=== PATIENT | female | born 1950 | race Caucasian/White ===

== ENCOUNTER 2017-03-21 11:06 | Outpatient (CLI) | payer MEDICARE, BC ==
[~2017-03-21] VITALS: Ht 157.5 cm; Wt 68.0 kg
[2017-03-21 11:30] VITALS: BP 135/71
[2017-03-21] MEDS ORDERED: ASPIR 8181 MG ORAL (14:10)
[2017-03-21] MEDS ORDERED: METFORMIN HCL1000 M3 PO (14:10)
[2017-03-21] MEDS ORDERED: PRAVACHOL40 MG ORAL (14:10)
--- NOTE | 2017-03-21 14:15 | GI Initial Consult Note ---
Ventura,Junie Rogers N.[place]incoln 03/21/17 1415: History of Present Illness General Date patient seen: Mar 21, 2017 Time patient seen: 14:07 Referring physician: ANGELA Reason for Consultation: ROUTINE COLONOSCOPY Present Illness HPI 66 year old female patient referred by Dr. Palma presents today for routine GI evaluation. The patient last had a colonoscopy performed in 2011 where she states the results were unsure due to poor prep. She presents today with c/o of abdominal bloating. Denies any unintentional weight loss or changes in dietary habits. No signs of abuse or neglect. Patient is not fall risk. The patient is unaware of any drug/food allergies she may have. Home Meds Reported Medications Aspirin* (ASPIR 81*) 81 Mg Tablet.dr, 81 MG ORAL DAILY, TAB 03/21/17 Pravastatin Sodium (PRAVACHOL) 40 Mg Tablet, 10 MG ORAL BEDTIME, TAB 03/21/17 Metformin HCl (Metformin HCl ER) 1,000 Mg [id number], 1000 MG PO, TAB 03/21/17 Med list reviewed/reconciled: Yes Allergies: Coded Allergies: No Known Allergies (Unverified , 03/21/17) Patient History History Provided By: Patient, Medical Record PMH Narrative GERD DM Ovarian cysts Past Surgical History: Cosmetic Family History Narrative grandmother >> breast CA Uncle >> Throat CA Social History: Reports: smoking - quit 4 years ago Review of Systems All Other Systems: negative except mentioned in HPI Physical Exam T 98.5 BP 135/71 P 84 96 RA WT 150 lbs Sp02 EP Interpretation: reviewed, normal General Appearance: well appearing, no apparent distress, alert Head: normocephalic EENT: PERRL/EOMI, normal ENT inspection Neck: supple Respiratory: normal breath sounds, no respiratory distress Cardiovascular: normal rate Gastrointestinal: normal inspection, non tender, soft, normal bowel sounds, non -distended Rectal: deferred Genitourinary: no CVA tenderness Musculoskeletal: normal inspection, back normal Neurologic: normal inspection, alert, oriented x3, responsive Psychiatric: normal inspection, judgement/insight normal, memory normal Skin: normal inspection, normal color, no rash, warm/dry, palpation normal, well hydrated Lymphatic: normal inspection, no adenopathy GI: Plan Problems: (1) Colonoscopy planned (2) GERD (gastroesophageal reflux disease) (3) Diabetes mellitus Plan EGD/colonoscopy pending, patient will contact us for scheduling. - CLD & (Nulytely/Suprep/Movi-Prep) prep instructions given and acknowledged by patient. - NPO @ [place] day prior procedure explained. Seen with Dr. Mike. Thank you for this patient referral. MARCOS MIKE 03/22/17 1243: History of Present Illness Present Illness Home Meds Reported Medications Aspirin* (ASPIR 81*) 81 Mg Tablet.dr, 81 MG ORAL DAILY, TAB 03/21/17 Pravastatin Sodium (PRAVACHOL) 40 Mg Tablet, 10 MG ORAL BEDTIME, TAB 03/21/17 Metformin HCl (Metformin HCl ER) 1,000 Mg [id number], 1000 MG PO, TAB 03/21/17 Allergies: Coded Allergies: No Known Allergies (Unverified , 03/21/17) GI: Plan Plan The patient was seen and examined at bedside and all new and available data was reviewed in the patients chart. I agree with the above findings, impression and plan. (Patient seen earlier today. Signature stamp does not reflect patient encounter time.). - MD Audrey [facility] Rogers N.Shannon Mar 21, 2017 14:15 MARCOS MIKE Mar 22, 2017 12:43
== END 2017-03-21 11:33 | disposition home or self-care (01) ==
LOC: PAN 11:06
DX: K21.9 Gastro-esophageal reflux disease without esophagitis (principal); E11.9 Type 2 diabetes mellitus without complications; Z79.82 Long term (current) use of aspirin; Z79.84 Long term (current) use of oral hypoglycemic drugs; Z80.3 Family history of malignant neoplasm of breast; Z80.8 Family history of malignant neoplasm of other organs or systems; Z87.891 Personal history of nicotine dependence
CPT/HCPCS: 99201

== ENCOUNTER 2017-04-03 07:16 | Day surgery (SDC) | payer MEDICARE, BC ==
[2017-04-03] VITALS (8 sets, daily range): BP systolic 106–134; BP diastolic 58–79
[~2017-04-03] VITALS: Ht 167.6 cm; Wt 68.0 kg
--- NOTE | 2017-04-03 06:00 | Anethesia Preoperative Eval ---
Anesthesia Pre-op PMH/ROS General Date of Evaluation: Apr 03, 2017 Time of Evaluation: 05:58 Anesthesiologist: kiki ASA Score: ASA 3 Mallampati Score Class I : Soft palate, uvula, fauces, pillars visible Class II: Soft palate, uvula, fauces visible Class III: Soft palate, base of uvula visible Class IV: Only hard plate visible Mallampati Classification: Class II Surgeon: jeff Diagnosis: colon screening Surgical Procedure: colonoscopy Anesthesia History: none Social History: smoking - former smoker Family History: no anesthesia problems Allergies: Coded Allergies: No Known Allergies (Unverified , 04/03/17) Medications: see eMAR Past Medical History Cardiovascular: Reports: other - hypercholesterolemia Gastrointestinal/Genitourinary: Reports: GERD Endocrine: Reports: DM Anesthesia Pre-op Phys. Exam Physician Exam Last Vital Signs Date Time Temp Pulse Resp B/P (MAP) Pulse Ox O2 Delivery O2 Flow Rate FiO2 04/03/17 07:52 97.9 76 17 134/79 96 Room Air Constitutional: NAD Neurologic: CN 2-12 intact Cardiovascular: RRR Respiratory: CTA Gastrointestinal: S/NT/ND Airway Exam Mallampati Score: Class II MO: full Neck: supple TMD: 2fb ROM: full Anesthesia Pre-op A/P Studies Pre-op Studies: EKG - nsr Risk Assessment & Plan Assessment: asa3 Plan: mac Status Change Before Surgery: No Pre-Antibiotics Drug: JONAH Patiño Apr 03, 2017 06:00
[~2017-04-03 07:16] MED LIST: ASPIR 8181 MG ORAL; Atropine Inj 1mg/10ml Syr IV PRN; DiphenhydrAMINE 50mg/ml Inj IVP PRN; METFORMIN HCL1000 M3 PO; Midazolam 2mg/2ml Inj IVP PRN; PRAVACHOL40 MG ORAL; fentaNYL 100 mcg/2 mL IV PRN
--- NOTE | 2017-04-03 08:58 | Pre-Procedure Note/Attestation ---
Pre-Procedure Note/Attestation Complete Prior to Procedure Planned Procedure: not applicable Procedure Narrative: EGD AND COLONOSCOPY Indications for Procedure Pre-Operative Diagnosis: GERD, SCREENING COLON Attestation I attest that I discussed the nature of the procedure; its benefits; risks and complications; and alternatives (and the risks and benefits of such alternatives ), prior to the procedure, with the patient (or the patient's legal sales representative printing). I attest that, if there was a reasonable possibility of needing a blood transfusion, the patient (or the patient's legal sales representative printing) was given the [facility] standardized written summary, pursuant to the Josiah María Blood Safety Act ([place] Health and Safety Code # 1645, as amended). I attest that I re-evaluated the patient just prior to the surgery and that there has been no change in the patient's H&P, except as documented below: MARCOS MIKE Apr 03, 2017 08:58
--- NOTE | 2017-04-03 08:59 | Short Stay Surgery H&P ---
History of Present Illness History of Present Illness Chief Complaint SCREENING COLON, GERD SEE RECENT FULL CONSULT HPI Yessy Barraza is a 67 year old female who was admitted on for Colon Screening Patient History Allergies: Coded Allergies: No Known Allergies (Unverified , 04/03/17) PAST MEDICAL HISTORY: Past Surgeries: Social History: Medication History Scheduled Aspirin* (Aspir 81*), 81 MG ORAL DAILY, (Reported) Metformin HCl (Metformin HCl ER), 1,000 MG PO BID, (Reported) Pravastatin Sodium (Pravachol), 10 MG ORAL BEDTIME, (Reported) Physical Exam Vital Signs Last Vital Signs Date Time Temp Pulse Resp B/P (MAP) Pulse Ox O2 Delivery O2 Flow Rate FiO2 04/03/17 07:52 97.9 76 17 134/79 96 Room Air Plan Attestation Are the patient's medical conditions optimized for surgery? MARCOS MIKE Apr 03, 2017 08:59
[2017-04-03] MEDS ORDERED: Propofol 200mg/20ml IV ONE (09:30)
[2017-04-03] MEDS ORDERED: Lidocaine 1% MPF 10mg/ml 5ml ONE (09:30)
--- NOTE | 2017-04-03 10:02 | Endoscopy Procedure Note ---
Endoscopy Procedure Note Indication for Procedure: gerd, screening colon Procedures Performed: EGD, colonoscopy Operative Findings/Diagnosis: gastritis, hemorrhoids, 4 polyps Specimen: yes Pt Tolerated Procedure Well: Yes Estimated Blood Loss: none Anesthesiologist: carolina Anesthesia: MAC Implant(s) used?: No 50 yrs or older w/o bx or poly: No 10yrs. F/U not recommended: Yes If not recommended, why?: Above average risk 10 yrs. F/U needed: Yes 18 years or older w/prev. colo: No MARCOS MIKE Apr 03, 2017 10:01
--- NOTE | 2017-04-03 11:04 | Immediate Post-Op Evaluation ---
Immediate Post-Op Evalulation Immediate Post-Op Evalulation Procedure: egd/colonoscopy Date of Evaluation: Apr 03, 2017 Time of Evaluation: 10:21 IV Fluids: 250ml 0.9ns Blood Products: none Estimated Blood Loss: negligible Blood Pressure Systolic: 126 Blood Pressure Diastolic: 70 Pulse Rate: 90 Respiratory Rate: 18 O2 Sat by Pulse Oximetry: 97 Temperature (Fahrenheit): 98.3 Pain Score (1-10): 0 Nausea: No Vomiting: No Complications none Patient Status: awake, reacts, patent Hydration Status: adequate Drug: JONAH Patiño Apr 03, 2017 11:04
--- NOTE | 2017-04-03 11:06 | 48 Hour Post Anesthesia Eval ---
Post Anesthesia Evaluation Procedure: egd/colonoscopy Date of Evaluation: Apr 03, 2017 Time of Evaluation: 10:23 Blood Pressure Systolic: 122 0: 77 Pulse Rate: 88 Respiratory Rate: 18 Temperature (Fahrenheit): 98.3 O2 Sat by Pulse Oximetry: 99 Airway: patent Nausea: No Vomiting: No Pain Intensity: 0 Hydration Status: adequate Cardiopulmonary Status: stable Mental Status/LOC: patient returned to baseline Post-Anesthesia Complications: none Follow-up care needed: N/A JONAH ESPINAL Apr 03, 2017 11:05
--- NOTE | 2017-04-03 14:45 | Procedure Note ---
DATE OF PROCEDURE: 04/03/2017 SURGEON: Derick Daen M.D. PROCEDURE: Upper endoscopy with biopsy and colonoscopy with biopsy. ANESTHESIA: Per Dr. Yoon. INSTRUMENT: Olympus adult flexible upper endoscope and colonoscope. INDICATION: 1. Screening colonoscopy. 2. Chronic GERD. The procedure, risks, benefits, and possible consequences, including hemorrhage, aspiration, perforation and infection, and alternative treatments, were explained to the patient/legal guardian by Dr. Derick Dean and the patient/legal guardian understood and accepted these risks. PROCEDURE: After informed consent was obtained and the patient was adequately sedated, Olympus upper endoscope was advanced from the mouth into the second portion of the duodenum and retroflexion was performed in the stomach. The patient had evidence of diffuse gastritis in the proximal body of the stomach. There were linear erosions. There was cobblestoning of the mucosa suspicious for H. pylori infection. Biopsy from the body and antrum was obtained. The patient has one very small island of salmon-colored mucosa above the Z-line suggestive of just an island of Hart's, which was biopsied. The rest of the upper endoscopic examination was grossly within normal limits. At this time, the patient was turned over for colonoscopy. First, rectal exam was performed, which was positive for internal hemorrhoids. Then, the scope was advanced from the rectum into the cecum documented by appendiceal orifice, ileocecal valve, and right upper quadrant palpation. Quality of prep was very good. The patient had four polyps in the cecum, all removed with cold biopsy forceps technique. The rest of the examination was grossly within normal limits. Retroflexion of rectum showed evidence of few small nonbleeding internal hemorrhoids. SUMMARY FINDINGS: 1. One island of small salmon-colored mucosa above the Z-line suspicious for Hart's, status post biopsy. 2. Gastritis, status post biopsy. 3. Linear erosions of the gastric mucosa in the proximal body of the stomach. 4. Internal hemorrhoids. 5. Four cecum polyps were removed. Please see above for details. RECOMMENDATIONS: Follow up biopsy results and treat accordingly. Derick Dean M.D. DR: BRANDYN JOB#: [id number] CC:
--- NOTE | 2017-04-05 17:08 | Cardiology Report ---
APPROVED REPORT EKG Measurement Heart [id number] MI [id number] Normal sinus rhythm Normal ECG
== END 2017-04-03 11:15 | disposition home or self-care (01) ==
LOC: GAS 07:16
DX: Z12.11 Encounter for screening for malignant neoplasm of colon (principal); K21.9 Gastro-esophageal reflux disease without esophagitis; E78.00 Pure hypercholesterolemia, unspecified; E11.9 Type 2 diabetes mellitus without complications; K64.8 Other hemorrhoids; K63.5 Polyp of colon; K29.50 Unspecified chronic gastritis without bleeding; B96.81 Helicobacter pylori [H. pylori] as the cause of diseases classified elsewhere; D12.0 Benign neoplasm of cecum; Z79.84 Long term (current) use of oral hypoglycemic drugs; Z79.82 Long term (current) use of aspirin; Z87.891 Personal history of nicotine dependence
CPT/HCPCS: 43239; 45380; 82962; 93005; J2704; 94003; 94150

== ENCOUNTER 2017-04-18 10:53 | Outpatient (CLI) | payer MEDICARE, BC ==
[~2017-04-18 10:53] MED LIST changes: -Atropine Inj 1mg/10ml Syr IV PRN; -DiphenhydrAMINE 50mg/ml Inj IVP PRN; -Midazolam 2mg/2ml Inj IVP PRN; -fentaNYL 100 mcg/2 mL IV PRN
--- NOTE | 2017-04-21 17:23 | GI Progress Note ---
Assessment/Plan Problems: (1) Colonoscopy planned SNOMED: 556703525 (2) GERD (gastroesophageal reflux disease) ICD Codes: K21.9 - Gastro-esophageal reflux disease without esophagitis SNOMED: 001707072 (3) Diabetes mellitus ICD Codes: E11.9 - Type 2 diabetes mellitus without complications SNOMED: 08129986 Status: progressing Status Narrative Seen with Dr. Dean. Assessment/Plan SUMMARY FINDINGS: 1. One island of small salmon-colored mucosa above the Z-line suspicious for Hart's, status post biopsy. 2. Gastritis, status post biopsy. 3. Linear erosions of the gastric mucosa in the proximal body of the stomach. 4. Internal hemorrhoids. 5. Four cecum polyps were removed. Please see above for details. RECOMMENDATIONS: Follow up biopsy results and treat accordingly. >> H. Pylori positive >> [place] tx given RTC x 3 months for repeat BT repeat colon x 3 years The patient was seen and examined at bedside and all new and available data was reviewed in the patients chart. I agree with the above findings, impression and plan. (Patient seen earlier today. Signature stamp does not reflect patient encounter time.). - Wilfred Dean MD Subjective Subjective EGD/colonoscopy review constipation abdominal bloating after eating Objective T 98.4 BP 130/62 P 98 96 RA General Appearance: WD/WN, no apparent distress, alert Cardiovascular: normal rate Respiratory/Chest: normal breath sounds, no respiratory distress Abdominal Exam: normal bowel sounds, non tender, soft Extremities: normal range of motion, non-tender Junie Ventura NZuly Apr 21, 2017 17:23 MARCOS DEAN Apr 25, 2017 11:39
== END 2017-04-18 11:25 | disposition home or self-care (01) ==
LOC: PAN 10:53
DX: R10.9 Unspecified abdominal pain (principal)
CPT/HCPCS: 99212

== ENCOUNTER 2017-07-18 11:02 | Outpatient (CLI) | payer MEDICARE, BC ==
[2017-07-18 11:19] VITALS: BP 112/66
[2017-07-18] MEDS ORDERED: TUMERSAID TABL1 EACH PO (11:19)
[2017-07-18] MEDS ORDERED: ZANTAC150 MG ORAL (11:19)
--- NOTE | 2017-07-18 12:52 | General Progress Note ---
Assessment/Plan Problem List: (1) GERD (gastroesophageal reflux disease) ICD Codes: K21.9 - Gastro-esophageal reflux disease without esophagitis SNOMED: 129025370 (2) Diabetes mellitus ICD Codes: E11.9 - Type 2 diabetes mellitus without complications SNOMED: 79096257 (3) Helicobacter pylori (H. pylori) infection ICD Codes: A04.8 - Other specified bacterial intestinal infections SNOMED: 851109331 (4) sibo Assessment/Plan breath test today xifaxan trial cont colace add miralax QOD Subjective ROS Limited/Unobtainable: Yes Allergies: Coded Allergies: No Known Allergies (Unverified , 04/03/17) Objective Last 24 Hour Vital Signs Date Time Temp Pulse Resp B/P (MAP) Pulse Ox O2 Delivery O2 Flow Rate FiO2 07/18/17 11:19 97.9 97 16 112/66 97 97.9 Laboratory Tests 07/18/17 11:30: Helicobacter pylori Breath Test [Pending] General Appearance: alert EENT: normal ENT inspection Neck: supple Cardiovascular: normal rate Respiratory/Chest: lungs clear Abdomen: normal bowel sounds, non tender, soft Extremities: non-tender MARCOS MIKE Jul 18, 2017 12:52
== END 2017-07-18 11:35 | disposition home or self-care (01) ==
LOC: PAN 11:02
DX: K21.9 Gastro-esophageal reflux disease without esophagitis (principal); E11.9 Type 2 diabetes mellitus without complications; A04.8 Other specified bacterial intestinal infections
CPT/HCPCS: 83013; 99212

== ENCOUNTER 2020-03-03 10:41 | Outpatient (CLI) | payer MEDICARE, BC ==
[~2020-03-03 10:41] MED LIST changes: +TUMERSAID TABL1 EACH PO; +ZANTAC150 MG ORAL
--- NOTE | 2020-03-03 12:00 | General Progress Note ---
Subjective ROS Limited/Unobtainable: Yes Allergies: Coded Allergies: No Known Allergies (Unverified , 04/03/17) Objective General Appearance: alert EENT: normal ENT inspection Neck: supple Cardiovascular: normal rate Respiratory/Chest: decreased breath sounds Abdomen: normal bowel sounds, non tender, soft Extremities: non-tender Assessment/Plan Assessment/Plan: Assessment/Plan Problem List: (1) GERD (gastroesophageal reflux disease) ICD Codes: K21.9 - Gastro-esophageal reflux disease without esophagitis SNOMED: 721488860 (2) Diabetes mellitus ICD Codes: E11.9 - Type 2 diabetes mellitus without complications SNOMED: 93961554 (3) Helicobacter pylori (H. pylori) infection ICD Codes: A04.8 - Other specified bacterial intestinal infections SNOMED: 605806378 (4) sibo Assessment/Plan plan EGD and colonoscopy trial of Trulance on omeprazole 20 mg Derick Dean MD Mar 03, 2020 12:00
== END 2020-03-03 12:41 | disposition home or self-care (01) ==
LOC: PAN 10:41
DX: K21.9 Gastro-esophageal reflux disease without esophagitis (principal); E11.9 Type 2 diabetes mellitus without complications; A04.8 Other specified bacterial intestinal infections; K56.609 Unspecified intestinal obstruction, unspecified as to partial versus complete obstruction
CPT/HCPCS: 99212

== ENCOUNTER 2020-03-23 09:28 | Day surgery (SDC) | payer MEDICARE, BC ==
[~2020-03-23] VITALS: Ht 162.6 cm; Wt 65.8 kg
[2020-03-23] VITALS (8 sets, daily range): BP systolic 107–141; BP diastolic 68–93
[~2020-03-23 09:28] MED LIST changes: +COQ1050 MG PO; +FISH OIL CAP1000 MG ORAL; +VITAMIN C500 M1 ORAL; +ZINC50 M2 ORAL
--- NOTE | 2020-03-23 10:51 | Pre-Procedure Note/Attestation ---
Pre-Procedure Note/Attestation Complete Prior to Procedure Planned Procedure: not applicable Procedure Narrative: EGd/colonoscopy Indications for Procedure Pre-Operative Diagnosis: screening colon, GERD Attestation I attest that I discussed the nature of the procedure; its benefits; risks and complications; and alternatives (and the risks and benefits of such alternatives), prior to the procedure, with the patient (or the patient's legal personal service representative). I attest that, if there was a reasonable possibility of needing a blood transfusion, the patient (or the patient's legal personal service representative) was given the [facility] standardized written summary, pursuant to the Josiah María Blood Safety Act ([place] Health and Safety Code # 1645, as amended). I attest that I re-evaluated the patient just prior to the surgery and that there has been no change in the patient's H&P, except as documented below: Derick Dean MD Mar 23, 2020 10:51
[2020-03-23] MEDS ORDERED: Lidocaine 1% MPF 10mg/ml 5ml ONE (10:53)
[2020-03-23] MEDS ORDERED: LR 1000ml ONE (10:53)
--- NOTE | 2020-03-23 10:53 | Short Stay Surgery H&P ---
History of Present Illness History of Present Illness Chief Complaint screening colon, GERD HPI Yessy Barraza is a 69 year old female who was admitted on for Gerd, Colon Screening Patient History Allergies: Coded Allergies: No Known Allergies (Unverified , 04/03/17) PAST MEDICAL HISTORY: (1) sibo (2) Helicobacter pylori (H. pylori) infection (3) GERD (gastroesophageal reflux disease) (4) Diabetes mellitus (5) Colonoscopy planned Medication History Scheduled Ascorbic Acid* (Vitamin C*), 500 MG ORAL DAILY, (Reported) Aspirin* (Aspir 81*), 81 MG ORAL DAILY, (Reported) Fish Oil (Fish Oil 1,000 mg Capsule), 1,000 MG ORAL DAILY, (Reported) Metformin HCl (Metformin HCl ER), 1,000 MG PO BID, (Reported) Pravastatin Sodium (Pravachol), 10 MG ORAL BEDTIME, (Reported) Zinc Amino Acid Chelate (Zinc), 50 MG ORAL DAILY, (Reported) Miscellaneous Medications Ubidecarenone (Coq10), 50 MG PO, (Reported) Review of Systems Cardiovascular: Reports: no symptoms Respiratory: Reports: no symptoms Gastrointestinal: Reports: gastro esophageal reflux disease Genitourinary: Reports: no symptoms Neurologic: Reports: no symptoms Endocrine: Reports: no symptoms Hematologic: Reports: no symptoms Physical Exam Vital Signs Last Vital Signs Date Time Temp Pulse Resp B/P (MAP) Pulse Ox O2 Delivery O2 Flow Rate FiO2 03/23/20 10:45 96.8 80 18 135/73 98 Room Air Labs Laboratory Tests Test 03/23/20 10:19 POC Whole Blood Glucose Pending Skin: normal HENT: normal Heart: normal Lungs: normal Abdomen: normal Extremities: normal Plan Plan of Care esophagogastroduodenoscopy and colonoscopy Attestation Are the patient's medical conditions optimized for surgery? Attestation Response: yes Derick Dean MD Mar 23, 2020 10:53
--- NOTE | 2020-03-23 11:09 | Endoscopy Procedure Note ---
Endoscopy Procedure Note General Indication for Procedure: screening colon, GERD Procedures Performed: EGD, colonoscopy Operative Findings/Diagnosis: gastritis, hemorrhoids Specimen: yes Pt Tolerated Procedure Well: Yes Estimated Blood Loss: none Anesthesia Anesthesiologist: eddie suarez Anesthesia: MAC Inserted Devices Implant(s) used?: No Quality Quality of Bowel Preparation: Good Did scope reach the cecum?: Yes Was there any complications?: No GI Core Measures 50 yrs or older w/o bx or poly: No 10yrs. F/U recommended: Yes If not recommended, why?: Above average risk 18 years or older w/prev. colo: No Derick Dean MD Mar 23, 2020 11:09
--- NOTE | 2020-03-23 11:25 | Anethesia Preoperative Eval ---
Anesthesia Pre-op PMH/ROS General Date of Evaluation: Mar 23, 2020 Time of Evaluation: 10:53 Anesthesiologist: kiki ASA Score: ASA 3 Mallampati Score Class I : Soft palate, uvula, fauces, pillars visible Class II: Soft palate, uvula, fauces visible Class III: Soft palate, base of uvula visible Class IV: Only hard plate visible Mallampati Classification: Class II Surgeon: jeff Diagnosis: gerd, colon screening Surgical Procedure: egd/colonoscopy Anesthesia History: none Social History: smoking - former smoker Family History: no anesthesia problems Allergies: Coded Allergies: No Known Allergies (Unverified , 04/03/17) Medications: see eMAR Patient NPO?: Yes Past Medical History Cardiovascular: Reports: other - hypercholesterolemia Endocrine: Reports: DM, other - menopausal HEENT: Reports: cataract (L), cataract (R), other - hx/o broken nose PSxH Narrative: hysterectomy Anesthesia Pre-op Phys. Exam Physician Exam Last Vital Signs Date Time Temp Pulse Resp B/P (MAP) Pulse Ox O2 Delivery O2 Flow Rate FiO2 03/23/20 10:45 96.8 80 18 135/73 98 Room Air Constitutional: NAD Neurologic: CN 2-12 intact Cardiovascular: RRR Respiratory: CTA Gastrointestinal: S/NT/ND Airway Exam Mallampati Score: Class II MO: limited Neck: flexible TMD: 2fb ROM: limited Anesthesia Pre-op A/P Labs Labs Test 03/23/20 10:19 Microbiology Date/Time Source Procedure Growth Status 03/20/20 11:50 Nasopharynx SARS-CoV-2 RdRp Gene Assay - Final Complete Chemistry Test 03/23/20 10:19 POC Whole Blood Glucose Pending Risk Assessment & Plan Assessment: asa3 Plan: mac Status Change Before Surgery: No Pre-Antibiotics Drug: Rajwinder Osman MD Mar 23, 2020 11:25
--- NOTE | 2020-03-23 11:57 | Immediate Post-Op Evaluation ---
Immediate Post-Op Evalulation Immediate Post-Op Evalulation Procedure: egd/colonoscopy w/bx Date of Evaluation: Mar 23, 2020 Time of Evaluation: 11:49 IV Fluids: 650ml lr Blood Products: none Estimated Blood Loss: negligible Blood Pressure Systolic: 107 Blood Pressure Diastolic: 93 Pulse Rate: 80 Respiratory Rate: 18 O2 Sat by Pulse Oximetry: 97 Temperature (Fahrenheit): 97.0 Pain Score (1-10): 0 Nausea: No Vomiting: No Complications none Patient Status: awake, reacts, patent Hydration Status: adequate Drug: Rajwinder Osman MD Mar 23, 2020 11:57
--- NOTE | 2020-03-23 11:58 | 48 Hour Post Anesthesia Eval ---
Post Anesthesia Evaluation Procedure: egd/colonoscopy w/bx Date of Evaluation: Mar 23, 2020 Time of Evaluation: 11:51 Blood Pressure Systolic: 123 0: 73 Pulse Rate: 70 Respiratory Rate: 18 Temperature (Fahrenheit): 97.0 O2 Sat by Pulse Oximetry: 97 Airway: patent Nausea: No Vomiting: No Pain Intensity: 0 Hydration Status: adequate Cardiopulmonary Status: stable Mental Status/LOC: patient returned to baseline Post-Anesthesia Complications: none Follow-up care needed: N/A Rajwinder Sevilla MD Mar 23, 2020 11:58
--- NOTE | 2020-03-23 16:15 | Procedure Note ---
DATE OF PROCEDURE: 03/23/2020 SURGEON: Derick Dean MD PROCEDURE: Upper endoscopy with biopsy, colonoscopy with snare polypectomy and biopsy. ANESTHESIA: Per Dr. Yoon. INSTRUMENT: Olympus adult flexible upper endoscope and colonoscope. INDICATIONS: Screening colonoscopy, evaluation of chronic GERD. REASON FOR PROCEDURE: The procedure, risks, benefits, and possible consequences, including hemorrhage, aspiration, perforation and infection, and alternative treatments, were explained to the patient/legal guardian by Dr. Derick Dean and the patient/legal guardian understood and accepted these risks. DESCRIPTION OF PROCEDURE: After informed consent was obtained and patient was adequately sedated, Olympus upper endoscope was advanced from mouth into the second portion of the duodenum and retroflexion was performed in the stomach. GE junction was found to be about 40 cm from the incisors. No evidence of any esophagitis. In the stomach, there was diffuse gastritis. Random biopsies from antrum and body was obtained to rule out H. pylori infection. At this time, the upper endoscope was retrieved. Patient was turned over for colonoscopy. First, rectal exam was performed, which was positive for internal hemorrhoids. Then, the scope was advanced from the rectum into the cecum, then subsequently to terminal ileum. Quality of prep was very good. Patient had 1 diminutive polyp right at the opening of the appendix orifice, which was biopsied. There was a polyp in the transverse colon measured roughly about 5 mm, removed with cold snare polypectomy technique. The patient had total of 5 polyps in the sigmoid, they were all hyperplastic looking. Retroflexion of rectum showed evidence of internal hemorrhoids. SUMMARY OF FINDINGS: 1. Gastritis, status post biopsy. 2. Total of 7 polyps removed. See above for details. 3. Internal hemorrhoids. RECOMMENDATIONS: 1. Follow pathology. 2. We recommend repeat colonoscopy in 3 years. Derick Dean M.D. DR: EUGENE JOB#: [id number] CC:
== END 2020-03-23 13:15 | disposition home or self-care (01) ==
LOC: GAS 09:28
DX: Z12.11 Encounter for screening for malignant neoplasm of colon (principal); K21.9 Gastro-esophageal reflux disease without esophagitis; K29.50 Unspecified chronic gastritis without bleeding; K63.5 Polyp of colon; K64.8 Other hemorrhoids; Z79.82 Long term (current) use of aspirin; Z79.84 Long term (current) use of oral hypoglycemic drugs; E11.9 Type 2 diabetes mellitus without complications; Z79.899 Other long term (current) drug therapy; Z87.891 Personal history of nicotine dependence; E78.00 Pure hypercholesterolemia, unspecified; Z90.710 Acquired absence of both cervix and uterus
CPT/HCPCS: 43239; 45380; 45385; 82962; 94003; J2704; J7120; U0002; 94150

== ENCOUNTER 2020-03-30 12:36 | Outpatient (CLI) | payer MEDICARE, BC ==
--- NOTE | 2020-03-30 13:19 | General Progress Note ---
Subjective ROS Limited/Unobtainable: Yes Allergies: Coded Allergies: No Known Allergies (Unverified , 04/03/17) Objective General Appearance: alert EENT: normal ENT inspection Neck: supple Cardiovascular: normal rate Respiratory/Chest: lungs clear Abdomen: normal bowel sounds, non tender, soft Extremities: non-tender Assessment/Plan Assessment/Plan: 7 colon polyps>> repeat colon in 3 years SIBO>> Xifaxan and VSL #3 GERD>>> ppi and baclofen constipation>>> coalce and miralax Derick Dean MD Mar 30, 2020 13:19
== END 2020-03-30 14:36 | disposition home or self-care (01) ==
LOC: PAN 12:36
DX: K63.5 Polyp of colon (principal); K56.609 Unspecified intestinal obstruction, unspecified as to partial versus complete obstruction; K21.9 Gastro-esophageal reflux disease without esophagitis; K59.00 Constipation, unspecified
CPT/HCPCS: 99212